=== PATIENT | male | born 1995 | race Caucasian/White ===

== ENCOUNTER 2018-10-13 11:01 | Emergency (ER) | payer BC ==
--- NOTE | 2018-10-13 11:33 | EDM.PDOC ---
ED HPI GENERAL MEDICAL PROBLEM - General Chief Complaint: Lower Extremity Injury/Pain Stated Complaint: LEFT FOOT INFECTION Time Seen by Provider: 10/13/18 11:25 Source of Information: Reports: Patient, RN Notes Reviewed History Limitations: Reports: No Limitations - History of Present Illness INITIAL COMMENTS - FREE TEXT/NARRATIVE: The patient states that he has calluses to the soles of both his feet since he was 17 years old, related to wearing bilateral orthotics, due to bilateral short Achilles tendons. These were prescribed by his Call Center Receptionist, however, the patient states that he has not seen his Call Center Receptionist since he was 18 years old, about 5 years ago. The patient states that he cuts his calluses down with a razor blade about every 2 weeks, most recently this past , 10/10/2018. The patient states that in July of this year, he had a purulent discharge from a callus to the sole of his left foot, which has since resolved. He now presents the ED stating that he has pain to the callus under his left 2nd and 3rd MTP joints since , 10/10/2018, along with erythema to the area since 10/11/2018. No recent fever. No drainage from the site. The patient does not have a PCP. 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 Bala López. - Related Data Allergies Allergy/AdvReac Type Severity Reaction Status Date / Time No Known Allergies Allergy Verified 03/16/14 18:52 Home Meds: Home Meds Cephalexin [Keflex] 1 tab PO Q6H #28 capsule 10/13/18 [Rx] Past Medical History Musculoskeletal History: Reports: Other (See Below) (Bilateral short Achilles tendons) Social & Family History - Tobacco Use Smoking Status *Q: Current Every Day Smoker Years of Tobacco use: 8 Packs/Tins Daily: 0.5 Packs/Tins Daily Comment: Down from 1 ppd - Caffeine Use Caffeine Use: Reports: Coffee, Energy Drinks, Soda, Tea - Alcohol Use Alcohol Use History: No - Recreational Drug Use Recreational Drug Use: No - Living Situation & Occupation Living situation: Reports: Single, Alone Occupation: Employed ([employer]) Review of Systems - Review of Systems Review Of Systems: ROS reveals no pertinent complaints other than HPI. ED EXAM, GENERAL - Physical Exam Exam: See Below Exam Limited By: No Limitations General Appearance: Alert, WD/WN, No Apparent Distress Extremities: Other (Several calluses to the sole of the patient's left foot, in a similar pattern to that of his right foot. One of the calluses is under the 2nd and 3rd MTP joints, and appears to have been cored out somewhat centrally. There is no purulent drainage, however, there is considerable tenderness and deeper erythema surrounding the callus, suggestive of an infection. Neurovascular status of the left lower extremity is intact.) Course - Vital Signs Last Recorded V/S: Last Vital Signs Temp 36.4 C 10/13/18 11:15 Pulse 88 10/13/18 11:15 Resp 20 10/13/18 11:15 BP 137/98 H 10/13/18 11:15 Pulse Ox 100 10/13/18 11:15 - Orders/Labs/Meds Orders: Active Orders 24 hr Category Date Time Status cephALEXin [Keflex] Med 10/13/18 11:46 Once 500 mg PO ONETIME ONE - Re-Assessments/Exams Free Text/Narrative Re-Assessment/Exam: 10/13/18 11:46 As above, the patient has several calluses on the soles of both of his feet. The one that he is concerned about is under his 2nd and 3rd MTP joints, and there is some deeper erythema surrounding this callus. There may be an infection , therefore I will start the patient on Keflex, and prescribe a 7-day course. I am recommending that the patient contact his Call Center Receptionist first thing tomorrow morning, to make an appointment to be seen this week. The patient agreed that he would. In the meantime, I'm recommending that the patient not cut on his calluses. Departure - Departure Time of Disposition: 11:48 Disposition: Home, Self-Care 01 Condition: Good Clinical Impression: Left foot infection - Discharge Information *PRESCRIPTION DRUG MONITORING PROGRAM REVIEWED*: Not Applicable *COPY OF PRESCRIPTION DRUG MONITORING REPORT IN PATIENT [facility]: Not Applicable Referrals: Bala López DPM [Resident] - Forms: ED Department Discharge Additional Instructions: You were seen in the emergency room for concern about a possible infection of a callus on the sole of her left foot. On examination, it is possible that you have an infection in that area, therefore you have been started on the antibiotic Keflex. A prescription for Keflex has been sent to the [facility] pharmacy, located at [address] [place]. Take one tablet of Keflex every 6 hours, starting at 6:00 tonight, as prescribed. Finish the entire prescription unless told otherwise by your Call Center Receptionist. Call the office of your Call Center Receptionist, Dr. Bala López, first thing tomorrow morning, to make an appointment to be seen this week. In the meantime, we recommend that you abstain from cutting any of your calluses with a razor blade. If any other problems, please do not hesitate to return to the ER. - My Orders Last 24 Hours: My Active Orders 10/13/18 11:46 cephALEXin [Keflex] 500 mg PO ONETIME ONE - Assessment/Plan Last 24 Hours: My Active Orders 10/13/18 11:46 cephALEXin [Keflex] 500 mg PO ONETIME ONE
[2018-10-13] MEDS ORDERED: Cephalexin 500 MG Cap PO ONE (11:46)
== END 2018-10-13 12:16 | disposition home or self-care (01) ==
LOC: JD.ED 11:01
DX: L08.9 Local infection of the skin and subcutaneous tissue, unspecified (principal); F17.210 Nicotine dependence, cigarettes, uncomplicated
CPT/HCPCS: 99283; A9270

== ENCOUNTER 2022-02-13 02:50 | Emergency (ER) | payer SELFPAY ==
[2022-02-13] MEDS ORDERED: Lidocaine 1% 10 ML MDV INJECT ONE (03:11)
== END 2022-02-13 04:08 | disposition home or self-care (01) ==
LOC: JD.ED 02:50
DX: S51.812A Laceration without foreign body of left forearm, initial encounter (principal); F17.210 Nicotine dependence, cigarettes, uncomplicated; W26.8XXA Contact with other sharp object(s), not elsewhere classified, initial encounter
CPT/HCPCS: 12002; 99282